=== PATIENT | female | born 1945 ===

== ENCOUNTER 2018-06-06 12:33 | Outpatient (REF) | payer MEDICARE, BC, SELFPAY ==
[2018-06-06 20:37] LABS: ALT 29 U/L (12-78); AST 25 U/L (15-37); Albumin 3.8 g/dL (3.4-5.0); Alkaline Phosphatase 75 U/L (46-116); Anion Gap 10.8 mmol/L (3-11); BUN 21 mg/dL (7-18); Bilirubin, Total 0.5 mg/dL (0.2-1.0); CO2 26.2 mmol/L (21.0-32.0); CREATININE 0.71 mg/dL (0.55-1.02); Chloride 103 mmol/L (98-107); Glucose 80 mg/dL (70-100); Potassium 3.8 mmol/L (3.5-5.1); Sodium 140 mmol/L (136-145); Total Protein 6.6 g/dL (6.4-8.2)
[2018-06-09 13:22] LABS: Hepatitis C Ab w Rflx HCV PCR Negative (NEGAT)
== END 2018-06-06 12:53 ==
LOC: NCHCN 12:33
PROVIDERS: PCP Internal Medicine; Visit Provider Nurse Practitioner Family
DX: G47.9 Sleep disorder, unspecified (principal); E78.5 Hyperlipidemia, unspecified; D12.6 Benign neoplasm of colon, unspecified
CPT/HCPCS: 80053; 86803

== ENCOUNTER 2019-01-19 00:56 | Outpatient (CLI) | payer MEDICARE, BC, SELFPAY ==
--- NOTE | 2019-01-19 09:22 | DI.MAMMO_ITS ---
SYMPTOM/DIAGNOSIS: SCREENING, Z12.31 MAMMOGRAMS: Mammograms were interpreted according to the usual protocol including computer analysis with CAD system, tomosynthesis and C view imaging. The breasts are of moderate density with fairly symmetrical distribution of fibroglandular tissue. No dominant mass or clumped microcalcification is identified in either breast. The current examination is compared with previous examinations including 08/2015 and there is question of increased prominence of a small focal area of asymmetric density or nodularity projected in the central portion of the right breast on MLO view. Additional mammographic views of this area are requested to include an MLO spot compression view of the right breast. CONCLUSION: Additional mammographic views of the right breast requested as described above. Breast ultrasound may be indicated as well depending on the results of the additional mammographic views. Category 0. Breast density, category B. MQSA ASSESSMENT OF FINDINGS: Incomplete: Needs additional imaging evaluation. Category 0. Patient will receive a letter notifying them of these results. BI-RADS category B. There are scattered areas of fibroglandular density.
== END 2019-01-19 01:16 ==
PROVIDERS: PCP Internal Medicine; Visit Provider Nurse Practitioner Family
DX: Z12.31 Encounter for screening mammogram for malignant neoplasm of breast (principal); R92.8 Other abnormal and inconclusive findings on diagnostic imaging of breast
CPT/HCPCS: 77063; 77067

== ENCOUNTER 2019-01-23 01:59 | Outpatient (CLI) | payer MEDICARE, BC, SELFPAY ==
--- NOTE | 2019-01-23 14:33 | DI.COMBO_ITS ---
SYMPTOMS/DIAGNOSIS: RIGHT BREAST INCREASED PROMINENCE OF A SMALL FOCAL AREA OF ASYMMETRIC DENSITY OR NODULARITY ADDITIONAL MAMMOGRAPHIC VIEWS, RIGHT BREAST, AND RIGHT BREAST ULTRASOUND: Additional images are interpreted according to the usual protocol including tomosynthesis and 2D imaging. Additional mammographic views of the right breast and right breast ultrasound are interpreted in conjunction. These examinations were obtained to evaluate a questionable area of nodularity or asymmetric density in the central portion of the right breast on recent mammogram. Additional mammographic views fail to show a discrete mass. Breast ultrasound shows no evidence of mass or cyst. CONCLUSION: No specific evidence of malignancy at this time. Follow-up unilateral right breast mammogram requested in six months. Category 3, breast density category C. MQSA ASSESSMENT OF FINDINGS: Probably benign. Six month follow-up recommended. Category 3. Patient will receive a letter notifying them of these results. Bi-RADS category C. The breasts are heterogeneously dense, which may obscure small masses.
== END 2019-01-23 02:19 ==
PROVIDERS: PCP Internal Medicine; Visit Provider Nurse Practitioner Family
DX: Z12.31 Encounter for screening mammogram for malignant neoplasm of breast (principal); R92.8 Other abnormal and inconclusive findings on diagnostic imaging of breast; N63.10 Unspecified lump in the right breast, unspecified quadrant; N64.59 Other signs and symptoms in breast
CPT/HCPCS: 76642; 77063; 77067

== ENCOUNTER 2019-06-09 11:41 | Outpatient (REF) | payer MEDICARE, BC, SELFPAY ==
[2019-06-09 21:45] LABS: ALT 28 U/L (14-59); AST 19 U/L (15-37); Albumin 3.9 g/dL (3.4-5.0); Alkaline Phosphatase 73 U/L (46-116); Anion Gap 12.8 mmol/L (3-11); BUN 18 mg/dL (7-18); Bilirubin, Total 0.5 mg/dL (0.2-1.0); CO2 22.2 mmol/L (21.0-32.0); CREATININE 0.67 mg/dL (0.55-1.02); Calcium 9.2 mg/dL (8.5-10.1); Chloride 106 mmol/L (98-107); Glucose 95 mg/dL (70-100); Potassium 4.5 mmol/L (3.5-5.1); Sodium 141 mmol/L (136-145); Total Protein 6.8 g/dL (6.4-8.2)
== END 2019-06-09 12:01 ==
LOC: NCHCN 11:41
PROVIDERS: PCP Internal Medicine; Visit Provider Nurse Practitioner Family
DX: E78.5 Hyperlipidemia, unspecified (principal); D12.6 Benign neoplasm of colon, unspecified; M25.561 Pain in right knee; G47.9 Sleep disorder, unspecified
CPT/HCPCS: 80053

== ENCOUNTER 2019-07-20 01:25 | Outpatient (CLI) | payer MEDICARE, BC, SELFPAY ==
--- NOTE | 2019-07-20 01:55 | DI.MAMMO_ITS ---
EXAM: MG MAMMO DIAGNOSTIC UNI CLINICAL HISTORY: DIAGNOSTIC, F/U ABNL MAMMO, R92.8, 6 MO F/U TECHNIQUE: Bilateral full field digital CC and MLO mammographic images were obtained with 3D tomosyn thesis and utilizing computer aided detection (CAD). COMPARISON: [id number] FINDINGS: This is a six-month follow-up from February,. The right breast is composed of heterogeneously den se fibroglandular tissue, breast density category C. No suspicious mass or suspicious microcalcifica tion is seen. The previously questioned area of asymmetric density is no longer seen. IMPRESSION: Category 1, negative mammogram. Bilateral screening should be resumed in 6 months. BI-RADS Cat 1 - Negative Breast Density - Category C - Heterogeneously dense
== END 2019-07-20 01:45 ==
PROVIDERS: PCP Internal Medicine; Visit Provider Nurse Practitioner Family
DX: Z12.31 Encounter for screening mammogram for malignant neoplasm of breast (principal); R92.8 Other abnormal and inconclusive findings on diagnostic imaging of breast; N64.59 Other signs and symptoms in breast
CPT/HCPCS: 77061; 77065; G0279

== ENCOUNTER 2019-09-24 16:21 | Outpatient (REF) | payer MEDICARE, BC, SELFPAY | END 2019-09-24 16:41 | LOC: NCHCN 16:21 | PROVIDERS: PCP Internal Medicine; Visit Provider Nurse Practitioner Family | DX: R30.0 Dysuria (principal) | CPT/HCPCS: 87077; 87086; 87186 ==

== ENCOUNTER 2019-11-23 14:14 | Outpatient (REF) | payer MEDICARE, BC, SELFPAY | END 2019-11-23 14:34 | LOC: NCHCN 14:14 | PROVIDERS: PCP Internal Medicine; Visit Provider Nurse Practitioner Family | DX: R30.0 Dysuria (principal) | CPT/HCPCS: 87077; 87086; 87186 ==

== ENCOUNTER 2020-07-06 00:59 | Outpatient (CLI) | payer MEDICARE, BC, SELFPAY ==
--- NOTE | 2020-07-06 12:26 | DI.MAMMO_ITS ---
EXAM: MAMMO SCREENING CLINICAL HISTORY: SCREENING, Z12.31 TECHNIQUE: Mammograms were interpreted according to the usual protocol including computer analysis w [employer] CAD system, tomosynthesis and C-view imaging. COMPARISON: 2010 through 2018 FINDINGS: The breasts are composed of heterogeneously dense fibroglandular densities, Breast Density category C . No suspicious masses or suspicious microcalcifications are seen. No skin thickening or abnormal axillary lymph nodes are seen. There has been no significant change from prior exams. There is motion on both CC views. Patient сергей ulbaylee return for repeat CC views at no additional charge. IMPRESSION: BI-RADS Cat 0 - Assessment Incomplete: Need additional imaging evaluation Breast Density Category C, heterogeneously Dense. The mammogram demonstrates the patient's breast tissue is dense. Dense breast tissue is very common a nd is not abnormal but dense breast tissue can make it harder to find cancer on a mammogram. Also, de nse breast tissue may increase breast cancer risk. This information about the result of the mammogram report was provided to the patient to raise their awareness. Use this report when you speak with the patient about their risks for breast cancer, which includes their family history. At that time, you may recommend additional screening tests (Ultrasound or MRI) as they might be useful based on their r isk. A negative radiographic report should not delay biopsy if a dominant or clinically suspicious mass is present. Up to ten percent of cancers are not identified on mammography. A negative report may reinforce clinical impression. Adenosis and dense breasts may obscure an underlying neoplasm. False positive reports average 6 to 10%.
== END 2020-07-06 01:19 ==
PROVIDERS: PCP Internal Medicine; Visit Provider Nurse Practitioner Family
DX: Z12.31 Encounter for screening mammogram for malignant neoplasm of breast (principal)
CPT/HCPCS: 77063; 77067

== ENCOUNTER 2020-07-15 03:23 | Outpatient (CLI) | payer MEDICARE, BC, SELFPAY ==
--- NOTE | 2020-07-15 | DI.MAMMO_ITS ---
EXAM: MG MAMMO SCREEN CALL BACK BI CLINICAL HISTORY: F/U MAMMO, REPEAT VIEWS FOR MOTION ON CC VIEWS TECHNIQUE: Mammograms were interpreted according to the usual protocol including computer analysis w [facility] CAD system, tomosynthesis and C-view imaging. COMPARISON: FINDINGS: Additional CC views were obtained bilaterally due to motion on the initial views. No mass or clumped microcalcification identified in either breast. A heterogeneously dense breast tissue noted. No ch gilmer in appearance comparison with previous examinations including July 2019. IMPRESSION: No specific evidence of malignancy at this time. Routine screening examinations are suggested at yea rly intervals in this age group according to the ACS ACR guidelines. BI-RADS Category 1 - Negative Breast Density - Category C - Heterogeneously dense
== END 2020-07-15 03:43 ==
PROVIDERS: PCP Internal Medicine; Visit Provider Nurse Practitioner Family
DX: Z12.31 Encounter for screening mammogram for malignant neoplasm of breast (principal)
CPT/HCPCS: 77063; 77067

== ENCOUNTER 2020-12-13 09:56 | Outpatient (REF) | payer MEDICARE, BC, SELFPAY ==
[2020-12-13 13:27] LABS: Abs Immature Grans 0.04 10^3/uL (0.0-0.06); Absolute Basophil Count 0.08 10^3/uL (0.0-0.2); Absolute Eosinophil Count 0.25 10^3/uL (0.0-0.7); Absolute Lymphocyte Count 2.08 10^3/uL (1.2-3.4); Absolute Neutrophil Count 2.76 10^3/uL (1.2-6.7); Basophils % 1.4; Eosinophils % 4.5; HGB 13.4 g/dL (11.2-15.7); Immature Grans % 0.7; Lymphocytes % 37.1; MCH 30.6 pg (27.0-33.0); MCHC 33.5 % (32.0-36.0); MCV 91.3 fL (80-95); MPV 10.5 fL (8.0-11.0); Monocytes % 7.1; Neutrophils % 49.2; Nucleated RBC 0 %; Platelet Count 305 10^3/uL (130-400); RBC 4.38 10^6/uL (3.93-5.22); RDW 12.1 % (11.7-14.6); RDW-SD 40.7 fL; WBC 5.61 10^3/uL (4.4-10.8)
[2020-12-13 13:47] LABS: ALT 41 U/L (14-59); AST 25 U/L (15-37); Albumin 3.7 g/dL (3.4-5.0); Alkaline Phosphatase 94 U/L (46-116); Anion Gap 7.5 mmol/L (3-11); BUN 19 mg/dL (7-18); Bilirubin, Total 0.5 mg/dL (0.2-1.0); CO2 28.5 mmol/L (21.0-32.0); CREATININE 0.7 mg/dL (0.55-1.02); Calcium 9.1 mg/dL (8.5-10.1); Calculated LDL 148 mg/dL (<100); Chloride 105 mmol/L (98-107); Cholesterol 241 mg/dL (<200); Glucose 85 mg/dL (74-106); HDL Cholesterol 78 mg/dL (40-60); Potassium 4.4 mmol/L (3.5-5.1); Sodium 141 mmol/L (136-145); Triglyceride 78 mg/dL (<150)
== END 2020-12-13 09:57 | disposition home or self-care (01) ==
LOC: NCHCN 09:56
PROVIDERS: PCP Internal Medicine; Visit Provider Nurse Practitioner Family
DX: E78.5 Hyperlipidemia, unspecified (principal); D12.6 Benign neoplasm of colon, unspecified
CPT/HCPCS: 80053; 80061; 85025

== ENCOUNTER 2021-06-13 15:03 | Outpatient (REF) | payer MEDICARE, BC, SELFPAY ==
[2021-06-13 21:09] LABS: Calculated LDL 145 mg/dL (<100); Cholesterol 264 mg/dL (<200); HDL Cholesterol 99 mg/dL (40-60); Triglyceride 103 mg/dL (<150)
== END 2021-06-13 15:04 | disposition home or self-care (01) ==
LOC: NCHCN 15:03
PROVIDERS: PCP Internal Medicine; Visit Provider Nurse Practitioner Family
DX: D12.6 Benign neoplasm of colon, unspecified (principal); N39.0 Urinary tract infection, site not specified
CPT/HCPCS: 80061

== ENCOUNTER → 2022-06-29 00:15 | Outpatient (CLI) | payer MEDICARE, SELFPAY ==
--- NOTE | 2022-06-29 08:39 | DI.MAMMO_ITS ---
Exam(s) MAMMO SCREENING EXAM: MAMMO SCREENING CLINICAL HISTORY: SCREENING, Z12.31 TECHNIQUE: Bilateral full field digital CC and MLO mammographic images were obtained with 3D tomosyn thesis and utilizing computer aided detection (CAD). COMPARISON: Available for comparison. FINDINGS: Masses/Architectural Distortion: There is an area of increased density in the central left breast on the MLO view. This may represent overlying fibroglandular tissue but a spot compression views reques stanley for further evaluation. Microcalcifications: No suspicious pleomorphic-type are seen. Skin Thickening/Nipple Retraction: None. IMPRESSION: 1. Area of increased density in the central left breast on the MLO view. 2. Spot compression views recommended. Ultrasound may be indicated at that time. BI-RADS Category 0 - Assessment Incomplete: Need additional imaging evaluation Breast Density - Category B - Scattered areas of fibroglandular density Breast density category C or D implies that the patient has dense breast tissue. Dense breast tissue is very common and is not abnormal but dense breast tissue can make it harder to find cancer on a ma mmogram. Also, dense breast tissue may increase their breast cancer risk. This information about the result of the mammogram report was provided to the patient to raise their awareness. Use this report when you speak with the patient about their risks for breast cancer, which includes their family hist ory. At that time, you may recommend for more screening tests (Ultrasound or MRI) as they might be us eful based on their risk. A negative radiographic report should not delay biopsy if a dominant or clinically suspicious mass is present. Up to ten percent of cancers are not identified on mammography. A negative report may reinforce clinical impression. Adenosis and dense breasts may obscure an underlying neoplasm. False positive reports average 6 to 10%. Patient will receive a letter notifying them of these results.
== END ==
PROVIDERS: PCP Internal Medicine; Visit Provider Nurse Practitioner Family
DX: Z12.31 Encounter for screening mammogram for malignant neoplasm of breast (principal); R92.8 Other abnormal and inconclusive findings on diagnostic imaging of breast
CPT/HCPCS: 77063; 77067

== ENCOUNTER → 2022-07-06 01:04 | Outpatient (CLI) | payer MEDICARE, SELFPAY ==
--- NOTE | 2022-07-06 | DI.US_ITS ---
Exam(s) MG MAMMO SCREEN CALL BACK UNI US BREAST LT COMPLETE EXAM: MG MAMMO SCREEN CALL BACK UNI -LEFT AND COMPLETE LEFT BREAST ULTRASOUND CLINICAL HISTORY: F/U ABNL MAMMO, INCREASED DENSITY IN CENTRAL LT BREAST. TECHNIQUE: Unilateral spot mammographic images obtained with 3D tomosynthesisand utilizing computer aided detection (CAD). . Complete LEFT breast Ultrasound was also performed, including all 4 quadrants, the retroareolar regio n, and the ipsilateral axilla. COMPARISON: Prior mammograms were reviewed. This additional imaging was performed due to findings described on the recent screening mammogram of 06/29/2022. FINDINGS: DIAGNOSTIC LEFT BREAST MAMMOGRAM: Additional mammographic views performed todayrender this area less concerning and similar in appearan ce to prior mammograms.. COMPLETE LEFT BREAST ULTRASOUND: Ultrasound performed today reveals no evidence of solid or significant cystic lesions in all 4 quadra nts.. Scanning of the left axilla is negative for adenopathy. IMPRESSION: No radiographic evidence of malignancy in the left breast.. Negative complete left breast ultrasound Appropriate follow-up is to keep this patient on a yearly mammogram schedule, with earlier imaging i f a self detected breast change is noted.. The patient was informed of these findings and recommendations prior to leaving the department today. BI-RADS Category 2 - Benign Findings Breast Density - Category B - Scattered areas of fibroglandular density Breast density Category C or D implies that the patient has dense breast tissue. Dense breast tissue can make it harder to find cancer on a mammogram. Dense breast tissue is also associated with an incr eased risk of breast cancer. This information about the result of the mammogram report was provided to the patient to raise their awareness. Use this report when you speak with the patient about their risks for breast cancer, which includes their family history. At that time, you may recommend additional screening tests (Ultrasoun d or MRI) as these tests may add significant information. A negative radiographic report should not delay biopsy if a dominant or clinically suspicious mass is present. Up to ten percent of cancers are not identified on mammography. A negative report may reinforce clinical impression. Adenosis and dense breasts may obscure an underlying neoplasm. False positive reports average 6 to 10%. Patient will receive a letter notifying them of these results.
== END ==
PROVIDERS: PCP Internal Medicine; Visit Provider Nurse Practitioner Family
DX: R92.8 Other abnormal and inconclusive findings on diagnostic imaging of breast (principal); Z12.31 Encounter for screening mammogram for malignant neoplasm of breast
CPT/HCPCS: 76642; 77063; 77067

== ENCOUNTER 2023-03-01 00:46 | Outpatient (CLI) | payer MEDICARE, SELFPAY ==
--- NOTE | 2023-03-01 | DI.RAD_ITS ---
Exam(s) XR SHOULDER RT COMPLETE 2+V EXAM: XR SHOULDER RT COMPLETE 2+V CLINICAL HISTORY: RT SHOULDER PAIN, M25.511. TECHNIQUE: 2D digital imaging was performed. COMPARISON: No exams were available for comparison FINDINGS: Six views No evidence of fracture nor dislocation or abnormal soft tissue calcifications. Subacromial space ap pears unremarkable. No obvious degenerative changes in the glenohumeral and AC joints. Bone density normal. No osseous lesions. IMPRESSION: No significant radiograph findings in the right shoulder. DATA REPOSITORY: RADIATION DOSE DELIVERED:
== END 2023-03-01 01:06 ==
LOC: DI 00:47
PROVIDERS: PCP Internal Medicine; Visit Provider Nurse Practitioner Family
DX: M25.511 Pain in right shoulder (principal)
CPT/HCPCS: 73030

== ENCOUNTER 2024-02-25 05:03 | Outpatient (CLI) | payer MEDICARE, SELFPAY ==
[2024-02-25 09:12] LABS: ALT 26 U/L (14-59); AST 24 U/L (15-37); Albumin 3.4 g/dL (3.4-5.0); Alkaline Phosphatase 97 U/L (46-116); Anion Gap 8.8 mmol/L (3-11); BUN 16 mg/dL (7-18); Bilirubin, Total 0.4 mg/dL (0.2-1.0); CO2 28.2 mmol/L (21.0-32.0); CREATININE 0.8 mg/dL (0.55-1.02); Calculated LDL 130 mg/dL (<100); Chloride 104 mmol/L (98-107); Cholesterol 207 mg/dL (<200); Estimated GFR 76.31 (mL/min/1.73m2); Glucose 95 mg/dL (74-106); HDL Cholesterol 55 mg/dL (40-60); Potassium 4.3 mmol/L (3.5-5.1); Sodium 141 mmol/L (136-145); Total Protein 7.7 g/dL (6.4-8.2); Triglyceride 110 mg/dL (<150)
== END 2024-02-25 05:04 | disposition home or self-care (01) ==
LOC: LBO 05:03
PROVIDERS: PCP Internal Medicine; Visit Provider Nurse Practitioner Family
DX: E78.5 Hyperlipidemia, unspecified (principal)
CPT/HCPCS: 36415; 80053; 80061

== ENCOUNTER 2024-05-01 00:44 | Outpatient (CLI) | payer MEDICARE, SELFPAY ==
--- OUTSIDE RECORDS SUMMARY | 2024-05-01 00:57 | XMS_ITS | Referral Summary ---
Author Organization [facility] Address [address] [place] [address] Care Team Providers Care Riverboat Captain Name Role Phone Deanna Molina MD Primary Care Provider [phone] Allergies No known active allergies Medications Medication Sig Dispensed Refills Start Date End Date Status ibuprofen (MOTRIN) 200 mg tablet Take 400 mg by mouth every 6 hours as needed for Pain. Active Active Problems No known active problems Social History Tobacco Use Types Packs/Day Years Used Date Smoking Tobacco: Former Cigarettes Q uit: 12/24/1976 Sex and Gender Information Value Date Recorded Sex Assigned at Not on file Gender Identity Not on file Sexual Orientation Not on file Functional Status Functional Status Response Date of Assess ment Because of a physical, menta l, or emotional condition, does this person have difficulty doing errands alone such as visiting a doctor's office or shopping? No 03/04/2015 Cognitive Status Response Date of Assessm ent Because of a physical, menta l, or emotional condition, does this person have serious difficulty concentrating, remembering, or making decisions? No 03/04/2015 Plan of Treatment Not on file Care Teams Riverboat Captain Relationship Specialty Start Date End Date Deanna Molina MD [address] [place] [address] PCP - General 01/24/11
--- OUTSIDE RECORDS SUMMARY | 2024-05-01 00:57 | XMS_ITS | Clinical Summary ---
Author Organization [facility] Address [address] [place] [address] Care Team Providers Care Surgical Processor Name Role Phone Deanna Molina MD Primary Care Provider [phone] Allergies No known active allergies Medications Medication [...] on file Sexual Orientation Not on file Obstetrics History Plan of Treatment Health Maintenance Due Date Last Done Comments Hepatitis C Screen 1945 RSV Immunization ( o r 60+ Years) (1 - 1-dose 60+ series) 2007 Fall Risk Screening 03/04/2016 03/04/2015 COVID-19 Vaccine ( season) 2023 Care Teams Surgical Processor Relationship Specialty Start Date End Date Deanna Molina MD [address] [place] [address] PCP - General 01/24/11
--- OUTSIDE RECORDS SUMMARY | 2024-05-01 00:57 | XMS_ITS | Encounter Summary ---
Author Organization Health system Address [address] [place] [id number] Care Team Providers Care Insurance Coder Name Role Phone Deanna Molina MD Primary Care Provider [phone] Reason for Visit * Reason Comments Follow-up Suture removal Encounter Details Date Type Department Care Team (Late st Contact Info) Description 03/04/2015 10:20 EDT Office Visit [facility] Dermatology 3rd [address] [address] Unknown, Provider, Team, Derm Nursing Venous coronado (Primary Dx) Social History Tobacco Use Types Packs/Day Years Used Date Smoking Tobacco: Former Cigarettes Q uit: 12/24/1976 Sex and Gender Information Value Date Recorded Sex Assigned at Not on file Gender Identity Not on file Sexual Orientation Not on file documented as of this encounter Functional Status Functional Status Response Date of [...] concentrating, remembering, or making decisions? No 03/04/2015 documented as of this encounter Discharge Diagnoses Diagnosis 228.01 HEMANGIOMA SKIN[ICD-9-CM] V58.32 ENCOUNTER FOR REMOVAL OF SUTURES[ICD-9-CM] documented in this encounter Progress Notes * Merly Gomez MD - 03/04/2015 2472 EDT I was the supervising physician and was present in the clinic during this visit. Note reviewed, patient was not seen by me. Merly Gomez MD * Roger Scottie Elias IV - 03/04/2015 0950 EDT SUTURE REMOVAL NOTE CC: SUTURE REMOVAL Ms. Ballesteros is status post excision of venous coronado on the right lower lip SUBJECTIVE: Patient reports no concern OBJECTIVE: There were no vitals taken for this visit. 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
--- OUTSIDE RECORDS SUMMARY | 2024-05-01 00:57 | XMS_ITS | Encounter Summary ---
Author Organization [facility] Address [address] [place] [address] Care Team Providers Care Analytics Consultant Name Role Phone Deanna Molina MD Primary Care Provider Reason for Visit * Reason Comments Cosmetic Consult vascular lesion on l ip Encounter Details Date Type Department Care Team (Late st Contact Info) Description 12/24/2013 8:30 EDT Office Visit [facility] Dermatology 3rd Floor [place] [id number] Balwinder Clarke MD [address] [place] [address] Venous coronado of lip (Primary Dx) Social History Tobacco Use Types Packs/Day Years Used Date Smoking Tobacco: Former Cigarettes Q uit: 12/24/1976 Sex and Gender Information Value Date Recorded Sex Assigned at Not on file Gender Identity Not on file Sexual Orientation Not on file documented as of this encounter Discharge Diagnoses Diagnosis 228.01 HEMANGIOMA SKIN[ICD-9-CM] documented in this encounter Patient Instructions * Patient Instructions* Merly Holt MD - 12/24/2013 9:16 EDT [facility] [address] [place] [address] Vascular Lesion Laser Treatment How Does The Vascular Lesion Laser Work? The Pulsed Dye Laser (PDL) is a highly specialized approach to the treatment of vascular growths such as port wine stains and telangiectasias (spider veins). This information sheet has been designed to provide answers to frequently asked questions about the therapy. The Vascular Lesion Laser produces a burst of light that selectively destroys the blood vessel thatmake up the vascular lesion(s) without substantially damaging the surrounding tissue. After laser treatment the surrounding tissue is left intact and normal pigmentation occurs. Port Wine Stains and Spider Veins A port wine stain (PWS) is a benign tumor of tiny blood vessels that looks like a flat light pink or purple stain. A PWS is a birthmark. Previously, they became dark and elevated over time and could be quite disfiguring. Now they are readily treated. Telangiectasias or spider veins are slightly enlarged red blood vessels, which can occur almost anywhere on the skin. They are common in sun exposed areas and may accompany the skin condition of rosacea. Are There Other Ways To Treat My Vascular Lesion? Vascular lesions may be removed by surgery or electrocautery. However, these procedures often result in scarring. The Argon Laser was previously used to treat vascular lesions. However this laser was not specific for the destruction of the blood vessels in the vascular lesions and resulted in scarring in a number of individuals. If you have been treated by other modalities which have resulted in scarring or loss of pigment, the lesion may not respond as well with the Vascular Lesion Laser. The scarring or loss of pigment maybecome more evident after treatment with the Vascular Lesion Laser. Are There Other Reasons Why I Should Not Have This Therapy? The Vascular Lesion Laser is not often recommended for patients that are darkly pigmented or those with black skin because the increased pigment will make the laser less effective. Other reasons for not receiving laser therapy would be: 1. If you have a sensitivity to light in the yellow (565-590 nm) wavelength region. 2. If you are taking anticoagulants (blood thinners). 3. If you have had seizures that are triggered by light. 4. If you are taking any medication for which sunlight is a contraindication. What Results Can I Expect From This Laser Treatment? Treatment with the Vascular Lesion Laser may consist of multiple treatments. These Treatments occur on an average of once every several months, depending on the size and type of lesion, may take a period of 1 - 2 years. The type of lesion you will have will determine the number of treatments you will need. For example: If you are having spider veins treated you may only require 1 or 2 treatments over thesame area. In comparison, a Port Wine Stain may require anywhere from 5 - 12 treatments over the same area. Depending on the type of vascular lesion you have, the age and color of the lesion will determine the amount of clearance that will occur. Total clearance of a lesion may not be possible because of these factors. How Long Will The Laser Treatment Last? The duration of your laser treatment depends on many factors. The size of your lesion will determine if the entire lesion can be treated in one session, or if it has to be divided into sections for treatment. The physician may schedule specific time allotments for laser therapy (i.e. 5 - 30 minute sessions). Finally, how you tolerate the laser treatment will also determine the length of treatmenttime. What Can I Expect Immediately After Treatment? Because the laser affects the blood vessel instantly, a black and blue or baugh- purple yeni developsimmediately in the area where the light has come in contact with the skin. This color resolves over5 - 14 days. The majority of patients are able to wear make up 3 days following the procedure, but extreme care must be taken when the makeup is removed. The overlying skin is very fragile in the heal ing period, and rubbing or irritation can increase the chance of scarring. Are There Any Adverse Effects? With any laser therapy there is a possibility for adverse effects. The following may occur with theVascular Lesion Laser: 1. The treatment area may hyperpigment, or appear darker. Normal skin color usually returns within 6 months in the facial area. If hyperpigmentation occurs on the extremities, the return to normal skin may take longer. 2. The treated area may show a slight depression after laser treatment. This depression usually resolves in a few months. 3. Scarring is a risk with the use of any laser. The Pari Vascular Lesion Laser has a less than 1% reported incidence of scarring. If the post treatment skin care instructions are not followed, the chance of scarring can be increased. Will The Laser Treatment Hurt? The laser will produce some discomfort. The feeling of a laser pulse has been described as being snapped by a rubber band. Following the laser treatment the area may feel like an intense sunburn for the first day or two. Most patients have tolerated the laser procedure without any need for anesthesia; however, in children with Port Wine Stains, anesthesia may be of benefit. If you require some anesthesia, the doctor will discuss types of anesthesia that can be used. Insurance Coverage Fees Fees for the procedure depend upon the size of the lesion treated and the time required. Insurance coverage depends upon your specific medical insurance policy. In general it is up to the patient to contact his or her insurance company to determine if a procedure will be covered. Most patients around the country get a certain degree of reimbursement from their policies for port-wine stain therapy. Facial telangiectasias and spider veins of the legs are considered cosmetic procedures and are usually not covered by insurance. You will be asked to pay at the time of the laser procedure. Personal checks and credit cards are accepted. Documentation Of Your Laser Treatment The size, location, and color of your lesion will be recorded in your chart. The physician may take photographs before and after laser treatments. These photographs can help you to see the progress that is being made to clear your vascular lesion. If these photographs are to be used for educational purposes, you will be asked to sign a form to allow the physician to utilizeyour photographs for that purpose. Safety Required during Laser Treatments The laser produces a very bright light. Everyone in the treatment room must wear protective eyewearduring the laser treatment. When the lesion is on an extremity or area other than the face, you may wear the protective gogglesor glasses that will permit you to watch the procedure, if you wish. When your lesion is on the face, you may have a gauze sponge placed over your eyes and secured with tape or you may wear the patient protective goggles that look like the ???sunnies?? used in tanning booths. The patient protective goggles do not fit well on infants or small children. Their eyes will be protected by gauze or a face cloth for instance. If the eyelid is treated, protective eye sanchez will be used under the eyelid. These eye sanchez look like a large contact lens and are usually made of metal or plastic. The doctor will place drops in your eye to make insertion of the eye shield less uncomfortable. When the laser is used to treat areas containing hair, the hair may be moistened with water, or damp sponges may be placed around the area to prevent the hair from being singed. Hair singed during laser therapy will regrow. Fires Caused By Laser Treatments There are rare reports of perfume and certain creams igniting and causing a flash fire upon laser use. No perfume, hair spray, or makeup should be worn to the laser appointment. documented in this encounter Progress Notes * Kristi Palafox - 12/24/2013 0908 EDT Review of Systems Constitutional: Negative for fever, fatigue and unexpected weight change. HENT: Negative for mouth sores. Eyes: Negative for pain. Respiratory: Negative for cough and shortness of breath. Cardiovascular: Negative for chest pain and palpitations. Gastrointestinal: Negative for nausea, vomiting, abdominal pain, diarrhea, constipation and blood in stool. Genitourinary: Negative for dysuria, frequency and hematuria. Musculoskeletal: Negative for myalgias, joint swelling, arthralgias and muscle stiffness in the morning. Skin: Negative for rash. Neurological: Negative for numbness and headaches. Endo/Heme/Allergies: Does not bruise/bleed easily. Psychiatric/Behavioral: Negative for sleep disturbance. The patient is not nervous/anxious. Merly Holt MD 12/24/2013 9:14 * Balwinder Clarke MD - 12/24/2013 0841 EDT Cosmetic Consultation Chief Complaint Patient presents with ??? Cosmetic Consult vascular lesion on lip S: Ritu Ballesteros is a 68 y.o. year old female presenting for evaluation and management of the following concerns: Enlarging vein on lower lip, present for 15 years. O: Patient is healthy appearing, alert and oriented, in no acute distress, displaying appropriate mood and affect. Cutaneous examination was performed today, including the hair, scalp, face, eyelids,lips, neck, hands, digits, and nails. Significant findings on examination include: On the lower vermilion lip, there is an approximately 1 cm completely blanching, blue nodule. A: Venous coronado, right lower lip. P: The above diagnoses and treatment options were discussed For the venous coronado, treatment options include laser and shave/curretage, however both are likely to leave a hypopigmented scar. Patient will return PRN for treatment as desired Merly Holt MD 12/24/2013 9:15 Attestation Statement: I saw and examined the patient with the resident/fellow. I agree with the findings and plan of care documented in the resident's/fellow's note. Balwinder Clarke MD, [facility] [employer] Division of Dermatology [facility] documented in this encounter Plan of Treatment Not on file documented as of this encounter Visit Diagnoses Diagnosis Venous coronado of lip- Primary Hemangioma of skin and subcutaneous tissue documented in this encounter Historical Medications * This list may reflect changes made after this encounter. Medication Sig Dispensed Refills Start Date End Date ibuprofen (MOTRIN) 200 mg tablet Take 400 mg by mouth every 6 hours as needed for Pain. added in this encounter Care Teams Analytics Consultant Relationship Specialty Start Date End Date Deanna Molina MD [address] [place] [address] PCP - General 01/24/11 documented as of this encounter
--- OUTSIDE RECORDS SUMMARY | 2024-05-01 00:57 | XMS_ITS | Encounter Summary ---
Author Organization [facility] Address [address] [place] [address] Care Team Providers Care Founder And President Name Role Phone Deanna Molina MD Primary Care Provider [phone] Reason for Visit * Reason Onset Date Comments Appointment Related 01/27/2014 Patient call ed and states she wants a laser appointment after February 26. Please call patient. Encounter Details Date Type Department Care Team (Late st Contact Info) Description 01/27/2014 Telephone [facility] Dermatology 3rd Floor [facility] [address] [place], [place] [id number] Balwinder Clarke MD [address] [place] [address] Appointment Related (Patient called and states she wants a laser appointment after February 26. Please call patient.) Social History Tobacco Use Types Packs/Day Years Used Date Smoking Tobacco: Former Cigarettes Q uit: 12/24/1976 Sex and Gender Information Value Date Recorded Sex Assigned at Not on file Gender Identity Not on file Sexual Orientation Not on file documented as of this encounter Miscellaneous Notes * Telephone Encounter - Kelli James - 01/27/2014 1021 EDT Booked patient with Dr. Pressely for laser on 04.09.14 @ 9:30. * Telephone Encounter - Niurka Miller - 01/27/2014 0955 EDT Left message to call office back. Patient can be scheduled for laser treatment with any provider asDr. Clarke does not have any openings prior to leaving. documented in this encounter Plan of Treatment Not on file documented as of this encounter Visit Diagnoses Not on filedocumented in this encounter Care Teams Founder And President Relationship Specialty Start Date End Date Deanna Molina MD [address] [place] [address] PCP - General 01/24/11 documented as of this encounter
--- OUTSIDE RECORDS SUMMARY | 2024-05-01 00:57 | XMS_ITS | Encounter Summary ---
Author Organization [facility] Address [address] [place] [address] Care Team Providers Care Business Coordinator Name Role Phone Deanna Molina MD Primary Care Provider [phone] Reason for Visit * Reason Comments Surgical Excision venous coronado on right lower lip Encounter Details Date Type Department Care Team (Late st Contact Info) Description 02/25/2015 10:00 EDT Office Visit [facility] Dermatology 3rd Floor [facility] [address] [place], [place] [id number] Kayla Pressley MD [address] [facility] [place] [address] Neoplasm of unspecified nature of bone, soft tissue, and skin (Primary Dx); Venous coronado Social History Tobacco Use Types Packs/Day Years Used Date Smoking Tobacco: Former Cigarettes Q uit: 12/24/1976 Sex and Gender Information Value Date Recorded Sex Assigned at Not on file Gender Identity Not on file Sexual Orientation Not on file documented as of this encounter Discharge Diagnoses Diagnosis 239.2 BONE/SKIN NEOPLASM NOS[ICD-9-CM] documented in this encounter Patient Instructions * Patient Instructions* Anna Herrera MD - 02/25/2015 9:53 EDT WOUND CARE INSTRUCTIONS FOR SKIN SURGERY The BANDAGE should remain in place for 24 hours. You may shower after 24 hours; remove the bandage and replace it after the shower (see wound care section). DISCOMFORT: Expect some discomfort. Extra-Strength Tylenol, taken as directed by the gas line installer, will help relieve pain. If Tylenol does not provide relief, you may alternate with ibuprofen. If thepain is severe please call the office. BLEEDING: You may notice some blood on the edges of the dressing the first day - this is NORMAL. Ifthe bleeding soaks through the dressing, remove the dressing, and apply firm, steady pressure with a moist clean wash cloth for fifteen minutes. If the bleeding stops, redress the wound, if not, callour office at . ACTIVITY: Relax and limit your physical activity for the first 48 hours after surgery. Your provider may ask you to limit activity for a longer period of time. If the surgery was on the face or scalp, keep your head elevated. APPEARANCE: There may be swelling and bruising around the wound. Some redness is normal, but the wound should not be red, hot and tender. If the wound becomes increasingly inflamed, warm, or drains pus, please call our office. With surgery on the nose, eyelids, forehead, or scalp your eyes may become swollen and bruised. WOUND CARE: ?? Change the dressing daily and when it becomes wet. ?? Wash hands with soap and water before changing the dressing. ?? Clean the wound with mild soap and warm water. ?? You may gently loosen any crusts with a cotton swab. ?? The wound may be slightly tender and may bleed a small amount. A small amount of discharge is normal. ?? Apply a thin layer of sterile petroleum jelly over the wound. ?? Cover with Telfa or similar non-stick dressing or bandage. ?? Tape in place with Hypafix or paper tape. ?? It is important to keep the wound covered for 7 days at which point the dressing may be removed and does not need to be reapplied. However, if there are areas that are not fully healed, the dressing should remain in place until the skin has healed completely. ?? If your sutures require removal, you will receive specific instructions regarding when and whereto have them removed; Continue daily dressings until the sutures are removed. Dissolvable sutures generally fall out in 7 to 14 days. If there are suture remnants still present after 7 days you may pull them out with tweezers. Please CALL OUR OFFICE IF YOU EXPERIENCE: or ?? Increasing redness ?? Wound is warm or hot to touch ?? Increasing pain ?? Drainage with a foul odor ?? Rapid swelling of the wound ?? Fever or chills documented in this encounter Progress Notes * TanikasophieMichaela - 02/25/2015 1001 EDT Patient Education Topic: Wound Care Method: Handout and Verbal Taught to: Patient Barriers: None Outcomes: independent Signature: Michaela Caceres Marie 02/25/2015 * Anna Herrera MD - 02/25/2015 0951 EDT Images from the original note were not included. LINEAR EXCISION PROCEDURE NOTE PATIENT INFORMATION: Ritu Ballesteros [id number] 1945 DATE OF PROCEDURE: 02/25/2015 SURGEON: Kayla Pressley MD ALL SOURCE INTELLIGENCE TECHNICIAN: Anna Herrera MD PREOPERATIVE DIAGNOSIS: venous coronado LOCATION: right lower lip LESION SIZE: 1.0 x 1.0 cm MARGINS PER SIDE: 0.1 cm TOTAL EXCISION DIAMETER: 1.2 x 1.2 cm INDICATIONS: The indication, risks, benefits and alternatives to this procedure were discussed in detail with the patient and all questions were answered. The patient had no contraindications to surgery with local anesthesia. Informed consent was obtained in writing. PROCEDURE: Patient position: supine Anesthesia: 1% lidocaine with epinephrine 1:100,000 local infiltration Prep: Povodine Iodine The patient was brought to the operative suite. The lesion was identified, prepped and draped in the usual sterile fashion. Following complete anesthesia, the skin was incised in a fusiform fashion to the level of the muscle with a number 15 surgical blade. The wound was undermined in all directions with care to avoid functionally important nerves and vessels. Hemostasis was achieved with spot electrocoagulation. The wound edges were approximated with 5.0 Vicryl (polyglactin 910) buried interrupted sutures at the level of the dermis and subcutis. The epidermis was approximated with 5.0 Prolene (polypropylene) and 4.0 Mersilene (polyethylene terephthalate). The final wound length was 1.5 cent imeters. The wound edges were cleansed with peroxide and a sterile pressure dressing was applied over telfa and petrolatum. Verbal and written wound care instructions were given. The patient tolerated the procedure well and left the operating suite in excellent condition. The surgical specimen was submitted to pathology for histologic evaluation. POSTOPERATIVE DIAGNOSIS: venous coronado FINAL PROCEDURE: Excision and Linear Repair BLOOD LOSS: minimal OPERATIVE TIME: 30 minutes COMPLICATIONS: none NOTE: none Anna Herrera MD 02/25/2015 9:51 Attestation statement: I saw and examined the patient with the resident/fellow. I agree with the findings and plan of care documented in the resident's/fellow's note. Kayla Pressley MD Chief of Dermatology [facility] I personally performed the procedure documented in this encounter Plan of Treatment Scheduled Orders Name Type Priority Associated Diagnoses Orde r Schedule SURGICAL PATHOLOGY- ORDER ONLY Pathology Routine Neoplasm of Unspecified Nature of Bone, Soft Tissue, and Skin Ordered: 02/25/2015 documented as of this encounter Procedures Procedure Name Priority Date/Time Associated Diagnosis Comments SURGICAL PATHOLOGY Routine 02/25/2015 13 :48 EDT documented in this encounter Results * SURGICAL PATHOLOGY (02/25/2015 13:48 EDT) Pathology Report: SURGICAL PATHOLOGY REPORT Reports generated via electronic interface contain original data; however they are lacking the format of the original report. Caution should be taken when reading/interpret ing unformatted reports. Name: ? RITU BALLESTEROS ? Accession #: ? [id number] ? : ? 1945 (Age: 69) ??F ? Collect Date: ? 02/25/2015 ? Location: ? [facility] ? Receive Date: ? 02/25/2015 ? Provider: KAYLA PRESSLEY MD Copy to: ANNA HERRERA MD ? Final Pathologic Diagnosis: MUCOSA OF LIP, RIGHT LOWER, EXCISION: - Venous coronado. ?? Document reviewed and electronically signed by: NIMA MCKENZIE MD Report ??Date: 02/28/2015 12:50 By the signature above, the attending physician certifies that he/she has personally conducted a gross and/or microscopic examination of the described specimens and rendered or confirmed the above diagnosis. Specimen(s) Received: Right lower lip Clinical History: Purple papule on the right lower lip, rule out venous coronado; clinical diagnosis code: ??239.2 Gross Description: ? Received in formalin labelled with proper patient identification (initials D, C) and right lower lip is an unoriented elliptical excision of red-purple wrinkled skin (2.0 x 0.5 cm and is excised to a depth of 0.4 cm). The margins are inked blue. The specimen is serially sectioned and entirely submitted as 1-2 central sections and 3 tips, reverse en face. Jh Vázquez 02/25/2015 3:04 PM End of Report [facility] 02/25/2015 13:4 8 EDT 02/25/2015 13:48 EDT Kayla Pressley MD PATHOLOGY ORDERAB LES [facility] [address] [place] [address] documented in this encounter Visit Diagnoses Diagnosis Neoplasm of unspecified nature of bone, soft tissue, and skin- Primary Venous coronado Hemangioma of skin and subcutaneous tissue documented in this encounter Care Teams Business Coordinator Relationship Specialty Start Date End Date Deanna Molina MD [address] [place] [address] PCP - General 01/24/11 documented as of this encounter
--- OUTSIDE RECORDS SUMMARY | 2024-05-01 00:57 | XMS_ITS | Encounter Summary ---
Author Organization [facility] Address [address] [place] [address] Care Team Providers Care Application Integrator Name Role Phone Deanna Molina MD Primary Care Provider [phone] Reason for Visit * Reason Comments Laser Treatment lower lip Encounter Details Date Type Department Care Team (Late st Contact Info) Description 09/03/2014 11:15 EST Office Visit [facility] Dermatology 3rd Floor [address] [id number] Francis Pressley MD [address] [facility], [address] [place] [address] Venous coronado (Primary Dx) Social History Tobacco Use Types Packs/Day Years Used Date Smoking Tobacco: Former Cigarettes Q uit: 12/24/1976 Sex and Gender Information Value Date Recorded Sex Assigned at Not on file Gender Identity Not on file Sexual Orientation Not on file documented as of this encounter Discharge Diagnoses Diagnosis 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 The patient is not nervous/anxious. All other systems reviewed and are negative. Francis Pressley MD Chief of Dermatology [facility] * Anna Waldrop MD - 09/03/2014 1106 EST S: Ritu Ballesteros is a 68 y.o. 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 Concerned about scarring and what appearance would be after the removal. No other complaints. O: Focal exam of lower lip On the lower vermilion lip, there is an approximately 1 cm completely blanching, blue nodule. A: Venous coronado, right lower lip. Large, ~1cm P: The above diagnoses and treatment options were discussed For the venous coronado, treatment options include laser and excision/curretage. Benefits of excision over laser including more definitive treatment were discussed, although it will require several weeks of healing and risk of hypopigmented scar Patient agrees to proceed with surgical excision at future appointment RTC for excision on or Saturday morning Anna Waldrop MD 09/03/2014 11:06 Attestation statement: I saw and examined the patient with the resident/fellow. I agree with the findings and plan of care documented in the resident's/fellow's note. Francis Pressley MD Chief of Dermatology [facility] documented in this encounter Plan of Treatment Not on file documented as of this encounter Visit Diagnoses Diagnosis Venous coronado- Primary Hemangioma of skin and subcutaneous tissue documented in this encounter Care Teams Application Integrator Relationship Specialty Start Date End Date Deanna Molina MD [address] [place] [address] PCP - General 01/24/11 documented as of this encounter
--- OUTSIDE RECORDS SUMMARY | 2024-05-01 00:58 | XMS_ITS | Encounter Summary ---
Author Organization [facility] Address [address] [place] [address] Care Team Providers Care Customer Experience Associate Name Role Phone Unavailable Primary Care Provider Unavailabl e Encounter Details Date Type Department Care Team (Late st Contact Info) Description 01/22/2011 Results Only [facility] Laboratory Services - [facility] ([facility]) [address] [place], [place] [address] Ravi Nicole MD [address] [place], [place] [phone] Social History Tobacco Use Types Packs/Day Years Used Date Smoking Tobacco: Never Assessed Sex and Gender Information Value Date Recorded Sex Assigned at Not on file Gender Identity Not on file Sexual Orientation Not on file documented as of this encounter Plan of Treatment Not on file documented as of this encounter Procedures Procedure Name Priority Date/Time Associated Diagnosis Comments SURGICAL PATHOLOGY Routine 01/22/2011 0:00 EDT documented in this encounter Results * SURGICAL PATHOLOGY (01/22/2011 0:00 EDT) Pathology Report: SURGICAL PATHOLOGY REPORT ? Reports generated via electronic interface contain original data; ? however they are lacking the format of the original report. ? Caution should be taken when reading/interpreti ng unformatted reports. ? Name: ? LESLI, RITU ? Accession #: ? [id number] ? : ? 1945 (Age: 65) ??F ? Collect Date: ? 01/22/2011 ? Location: ? [facility] ? Receive Date: ? 01/22/2011 ? Provider: RAVI RIVERAO MD ? Copy to: DAVID FINE MD ? Final Pathologic Diagnosis: ? Colon, sigmoid, polyp, biopsy: ? - Proteinaceous and vegetable matter only. ? - ??No colonic mucosa available for evaluation. ? Document reviewed and electronically signed by: ? GENIE NAYLOR MD ? Report ??Date: 01/24/2011 15:44 ? By the signature above, the attending physician certifies that he/she has ? personally conducted a gross and/or microscopic examination of the described ? specimens and rendered or confirmed the above diagnosis. ? Specimen(s) Received: ? Sigmoid polyp ? Clinical History: ? H/O colon adenoma ? Gross Description: ? Received in formalin labelled Lesli, Ritu and sigmoid polyp is a ?? 0.2 x 0.2 x 0.2 cm aggregate of probable vegetable material with no grossly ? discernible definitive tissue present. ??The specimen is entirely submitted in a single cassette. ??(Morris Garibay)/claytonn ? End of Report ? [facility] 01/22/2011 01/22/2011 17: 42 EDT Ravi Nicole MD PATHOLOGY ORDERABLES [facility] [address] [place] [address] documented in this encounter Visit Diagnoses Not on filedocumented in this encounter
--- OUTSIDE RECORDS SUMMARY | 2024-05-01 00:58 | XMS_ITS | Encounter Summary ---
Author Organization [facility] Address [address] [place] [address] Care Team Providers Care Mold Yarn Supervisor Name Role Phone Unavailable Primary Care Provider Unavailabl e Encounter Details Date Type Department Care Team (Late st Contact Info) Description 12/13/2010 Results Only [facility] Laboratory Services - [facility] ([facility]) [address] [place], [place] [address] Acacia Cage FNP [address] [place], [place] [phone] Social History Tobacco Use Types Packs/Day Years Used Date Smoking Tobacco: Never Assessed Sex and Gender Information Value Date Recorded Sex Assigned at Not on file Gender Identity Not on file Sexual Orientation Not on file documented as of this encounter Plan of Treatment Not on file documented as of this encounter Procedures Procedure Name Priority Date/Time Associated Diagnosis Comments CYTOPATHOLOGY Routine 12/13/2010 0:00 EDT documented in this encounter Results * CYTOPATHOLOGY (12/13/2010 0:00 EDT) Pathology Report: CYTOPATHOLOGY REPORT ? Reports generated via electronic interface contain original data; ? however they are lacking the format of the original report. ? Caution should be taken when reading/interpreti ng unformatted reports. ? Name: ? TALON RITU ? Accession #: ? [id number] ? : ? 1945 (Age: 65) ??F ?Collect Date: ? 12/13/2010 ? Location: ? [facility] ? Receive Date: ? 12/15/2010 ? Provider: ?ACACIA HORN ? Copy to: ? Specimen/Source: ?Pap Test, Cervix/Endocervix, ThinPrep Imaging System ? with manual evaluation ? Last Menstrual Period: ? HALLE ? SPECIMEN ADEQUACY ? Satisfactory for Evaluation ? - assessment of transformation zone component not applicable ( e.g. atrophy, ? vaginal sample, hysterectomy) ? - scant squamous epithelial component ? GENERAL CATEGORIZATION ? Negative for Intraepithelial Lesion or Malignancy ? Document reviewed and electronically signed by: ? Maggie Kathy, CT(ASCP) ? Report Date: ??12/20/2010 09:16 ? End of Report ? [facility] 12/13/2010 12/15/2010 Acacia HORN PATHOLOGY ORDERABLES [facility] [address] [place] [address] documented in this encounter Visit Diagnoses Not on filedocumented in this encounter
--- OUTSIDE RECORDS SUMMARY | 2024-05-01 00:58 | XMS_ITS | Encounter Summary ---
Author Organization [facility] Address [address] [place] [address] Care Team Providers Care Hogshead Press Operator Name Role Phone Unavailable Primary Care Provider Unavailabl e Encounter Details Date Type Department Care Team (Late st Contact Info) Description 09/29/2001 Results Only [facility] - [facility] [address] [place] [address] Drake Rojas MD [address] [facility] [address] [address] Social History Tobacco Use Types Packs/Day Years Used Date Smoking Tobacco: Never Assessed Sex and Gender Information Value Date Recorded Sex Assigned at Not on file Gender Identity Not on file Sexual Orientation Not on file documented as of this encounter Plan of Treatment Not on file documented as of this encounter Procedures Procedure Name Priority Date/Time Associated Diagnosis Comments CYTOPATHOLOGY Routine 09/29/2001 0:00 EST documented in this encounter Results * CYTOPATHOLOGY (09/29/2001 0:00 EST) Pathology Report: CYTOPATHOLOGY REPORT Reports generated via electronic interface contain original data; however they are lacking the format of the original report. Caution should be taken when reading/interpreti ng unformatted reports. Name: ? RITU BALLESTEROS ? Accession #: ? [id number] : ? 1945 (Age: 55) ??F ?Collect Date: ? 09/29/2001 Location: ? [facility] ? Receive Date: ? 10/02/2001 Provider: ?DRAKE ROJAS MD Copy to: ? Specimen/Source: ?Conventional Pap Test, Cervix/Endocervix Last Menstrual Period: ? none Hormonal/Contracep tive Status: ? Prempro ? SPECIMEN ADEQUACY ? Satisfactory for Evaluation - transformation zone component present GENERAL CATEGORIZATION ? Negative for Intraepithelial Lesion or Malignancy ? Document reviewed and electronically signed by: ? Annalisa Vizcaino, SCT(ASCP) ? Report Date: ??10/02/2001 19:36 End of Report [facility] 09/29/2001 10/02/2001 Drake Rojas MD PATHOLOGY ORDERABLES [facility] [address] [place] [address] documented in this encounter Visit Diagnoses Not on filedocumented in this encounter
--- OUTSIDE RECORDS SUMMARY | 2024-05-01 00:58 | XMS_ITS | Encounter Summary ---
Author Organization [facility] Address [address] [place] [address] Care Team Providers Care Sandblaster Stone Name Role Phone Unavailable Primary Care Provider Unavailabl e Encounter Details Date Type Department Care Team (Late st Contact Info) Description 05/20/[address] [facility] - [place] conversion [address] [place] [address] Acacia Cage FNP [address] [place], [place] [phone] Social History Tobacco Use Types Packs/Day Years Used Date Smoking Tobacco: Never Assessed Sex and Gender Information Value Date Recorded Sex Assigned at Not on file Gender Identity Not on file Sexual Orientation Not on file documented as of this encounter Plan of Treatment Not on file documented as of this encounter Procedures Procedure Name Priority Date/Time Associated Diagnosis Comments CYTOPATHOLOGY Routine 05/20/2007 0:00 EDT documented in this encounter Results * CYTOPATHOLOGY (05/20/2007 0:00 EDT) Pathology Report: CYTOPATHOLOGY REPORT Reports generated via electronic interface contain original data; however they are lacking the format of the original report. Caution should be taken when reading/interpreti ng unformatted reports. Name: ? RTIU BALLESTEROS ? Accession #: ? [id number] : ? 1945 (Age: 61) ??F ?Collect Date: ? 05/20/2007 Location: ? [facility] ? Receive Date: ? 05/22/2007 Provider: ?ACACIA CAGE SENIOR ASIC ENGINEER Copy to: ? Specimen/Source: ?ThinPrep Pap Test, Cervix/Endocervix, processed on Optimitive ThinPrep Imaging System, with manual evaluation Last Menstrual Period: ? HALLE Other: ? HPVA - HPV testing requested if ASC-US on the current ThinPrep Pap test. ? SPECIMEN ADEQUACY ? Satisfactory for Evaluation - assessment of transformation zone component not applicable ( e.g. atrophy, vaginal sample, hysterectomy) GENERAL CATEGORIZATION ? Negative for Intraepithelial Lesion or Malignancy ? Document reviewed and electronically signed by: ? Annalisa Vizcaino, SCT(ASCP) ? Report Date: ??05/27/2007 14:44 End of Report [facility] 05/20/2007 05/22/2007 Acacia BABINP PATHOLOGY ORDERABLES Performing Organization Address City/State/[facility] Co de Phone Number [facility] B[facility]N [address] [place] [address] documented in this encounter Visit Diagnoses Not on filedocumented in this encounter
--- OUTSIDE RECORDS SUMMARY | 2024-05-01 00:58 | XMS_ITS | Encounter Summary ---
Author Organization [facility] Address [address] [place] [address] Care Team Providers Care Commission Associate Name Role Phone Unavailable Primary Care Provider Unavailabl e Encounter Details Date Type Department Care Team (Late st Contact Info) Description 10/02/2002 Results Only [facility] - Maple conversion [address] [place] [address] Drake Rojas MD [address] [facility] [address] [address] Social History Tobacco Use Types [...] Priority Date/Time Associated Diagnosis Comments CYTOPATHOLOGY Routine 10/02/2002 0:00 EST documented in this encounter Results * CYTOPATHOLOGY (10/02/2002 0:00 EST) Pathology Report: CYTOPATHOLOGY REPORT Reports generated via electronic interface contain original data; however they are lacking the format of the original report. Caution should be taken when reading/interpreti ng unformatted reports. Name: ? RITU BALLESTEROS ? Accession #: ? [id number] : ? 1945 (Age: 56) ??F ?Collect Date: ? 10/02/2002 Location: ? [facility] ? Receive Date: ? 10/05/2002 Provider: ?DRAKE ROJAS MD Copy to: ? Specimen/Source: ?Conventional Pap Test, Cervix/Endocervix Last Menstrual Period: ? 2000 Previous Gynecologic Pathology: ? Yes: Atrophic vagina ? SPECIMEN ADEQUACY ? Satisfactory for Evaluation - assessment of transformation zone component not applicable ( e.g. atrophy, vaginal sample, hysterectomy) - obscuring inflammation GENERAL CATEGORIZATION ? Negative for Intraepithelial Lesion or Malignancy INTERPRETATION ? Reactive cellular changes associated with inflammation present (includes repair). ? Document reviewed and electronically signed by: ? ALIX KIM MD ? Report Date: ??10/07/2002 13:36 End of Report [facility] 10/02/2002 10/05/2002 Drake Rojas MD PATHOLOGY ORDERABLES Performing Organization Address City/State/[facility] Co de Phone Number [facility] [address] [place] [address] documented in this encounter Visit Diagnoses Not on filedocumented in this encounter
--- OUTSIDE RECORDS SUMMARY | 2024-05-01 00:58 | XMS_ITS | Encounter Summary ---
Author Organization [facility] Address [address] [place] [address] Care Team Providers Care Oxyhydrogen Welder Name Role Phone Unavailable Primary Care Provider Unavailabl e Encounter Details Date Type Department Care Team (Late st Contact Info) Description 01/19/2009 Orders Only [facility] Laboratory Services - [facility] ([facility]) [address] [place], [place] [phone] Acacia Cage FNP [address] [place], [place] [phone] Social History Tobacco Use Types Packs/Day Years Used Date Smoking Tobacco: Never Assessed Sex and Gender Information Value Date Recorded Sex Assigned at Not on file Gender Identity Not on file Sexual Orientation Not on file documented as of this encounter Plan of Treatment Not on file documented as of this encounter Procedures Procedure Name Priority Date/Time Associated Diagnosis Comments CYTOPATHOLOGY Routine 01/19/2009 0:00 EDT documented in this encounter Results * CYTOPATHOLOGY (01/19/2009 0:00 EDT) Pathology Report: CYTOPATHOLOGY REPORT ? Reports generated via electronic interface contain original data; ? however they are lacking the format of the original report. ? Caution should be taken when reading/interpreti ng unformatted reports. ? Name: ? TALON RITU ? Accession #: ? [id number] ? : ? 1945 (Age: 63) ??F ?Collect Date: ? 01/19/2009 ? Location: ? [facility] ? Receive Date: ? 01/20/2009 ? Provider: ?ACACIA HORN ? Copy to: ? Specimen/Source: ?Pap Test, Cervix/Endocervix, ThinPrep Imaging System ? with manual evaluation ? Last Menstrual Period: ? HALLE ? Other: ? HPVA - HPV testing requested if ASC-US on the current ThinPrep Pap test. ? SPECIMEN ADEQUACY ? Satisfactory for Evaluation ? - assessment of transformation zone component not applicable ( e.g. atrophy, ? vaginal sample, hysterectomy) ? - scant squamous epithelial component ? GENERAL CATEGORIZATION ? Negative for Intraepithelial Lesion or Malignancy ? Document reviewed and electronically signed by: ? Jessica Strickland, CT(ASCP)(IAC) ? Report Date: ??01/25/2009 10:02 ? End of Report ? [facility] B[facility]N 01/19/2009 01/20/2009 Acacia Cage MEDICAL DIAGNOSTIC RADIOGRAPHER PATHOLOGY ORDERABLES [facility] [address] [place] [address] documented in this encounter Visit Diagnoses Not on filedocumented in this encounter
--- OUTSIDE RECORDS SUMMARY | 2024-05-01 00:58 | XMS_ITS | Encounter Summary ---
Author Organization [facility] Address [address] [place] [address] Care Team Providers Care Chief Dispatcher Service Name Role Phone Unavailable Primary Care Provider Unavailabl e Encounter Details Date Type Department Care Team (Late st Contact Info) Description 07/07/2007 Results Only [facility] - [place] conversion [address] [place] [address] Ravi Nicole MD [address] [place] [address] Social History Tobacco Use Types Packs/Day Years Used Date Smoking Tobacco: Never Assessed Sex and Gender Information Value Date Recorded Sex Assigned at Not on file Gender Identity Not on file Sexual Orientation Not on file documented as of this encounter Plan of Treatment Not on file documented as of this encounter Procedures Procedure Name Priority Date/Time Associated Diagnosis Comments SURGICAL PATHOLOGY Routine 07/07/2007 0:00 EDT documented in this encounter Results * SURGICAL PATHOLOGY (07/07/2007 0:00 EDT) Pathology Report: SURGICAL PATHOLOGY REPORT Reports generated via electronic interface contain original data; however they are lacking the format of the original report. Caution should be taken when reading/interpreti ng unformatted reports. Name: ? RITU BALLESTEROS ? Accession #: ? [id number] ? : ? 1945 (Age: 61) ??F ? Collect Date: ? 07/07/2007 ? Location: ? [facility] ? Receive Date: ? 07/08/2007 ? Provider: RAVI NICOLE MD Copy to: DAVID ARCHIBALD MD ? Final Pathologic Diagnosis: A. ?Colon, ascending, polyps, biopsies: 1. ?Tubular adenoma (1). 2. ? Fragments of benign colonic mucosa (2). B. ?Colon, transverse, polyp, biopsy: ? 1. ?? Colonic mucosa with marked cautery effect. ??See comment. Comment: ? Deeper sections of the transverse colon biopsy have been examined. The cautery effect precludes a definitive diagnosis. ??(Dr. Brennan)/[facility] Document reviewed and electronically signed by: Maggie Brennan MD Report ??Date: 07/11/2007 18:09 By the signature above, the attending physician certifies that he/she has personally conducted a gross and/or microscopic examination of the described specimens and rendered or confirmed the above diagnosis. Specimen(s) Received: A. ?Polyps ascending colon x3 (#1) B. ? Transverse colon polyp (#2) Clinical History: ? Asymp screen Gross Description: ? Received in Hollande's fixative labelled Lesli and ascending colon polyps are three pablo-pink soft tissues ranging from 0.2 x 0.2 x 0.2 cm to 0.4 x 0.2 x 0.2 cm. ??The specimen is entirely submitted as (A). Received in Hollande's fixative labelled Lesli and transverse colon polyp is a pablo-pink, 0.3 x 0.3 x 0.2 cm, soft tissue fragment. ??The specimen is entirely submitted as (B). ??(Robe Schuster)/lgk End of Report [facility] 07/07/2007 07/08/2007 8:4 5 EDT Ravi Nicole MD PATHOLOGY ORDERABLES Performing Organization Address City/State/[facility] Co de Phone Number [facility] [address] [place] [address] documented in this encounter Visit Diagnoses Not on filedocumented in this encounter
--- OUTSIDE RECORDS SUMMARY | 2024-05-01 00:58 | XMS_ITS | Encounter Summary ---
Author Organization [facility] Address [address] [place] [address] Care Team Providers Care Slate Mixer Name Role Phone Unavailable Primary Care Provider Unavailabl e Encounter Details Date Type Department Care Team (Late st Contact Info) Description 10/15/[address] [facility] - [place] conversion [address] [place] [address] Acacia Cage FNP [address] [place], [place] [phone] Social History Tobacco Use Types Packs/Day Years Used Date Smoking Tobacco: Never Assessed Sex and Gender Information Value Date Recorded Sex Assigned at Not on file Gender Identity Not on file Sexual Orientation Not on file documented as of this encounter Plan of Treatment Not on file documented as of this encounter Procedures Procedure Name Priority Date/Time Associated Diagnosis Comments CYTOPATHOLOGY Routine 10/15/2005 0:00 EST documented in this encounter Results * CYTOPATHOLOGY (10/15/2005 0:00 EST) Pathology Report: CYTOPATHOLOGY REPORT Reports generated via electronic interface contain original data; however they are lacking the format of the original report. Caution should be taken when reading/interpreti ng unformatted reports. Name: ? RITU BALLESTEROS ? Accession #: ? [id number] : ? 1945 (Age: 59) ??F ?Collect Date: ? 10/15/2005 Location: ? [facility] ? Receive Date: ? 10/18/2005 Provider: ?ACACIA BABINP Copy to: ? Specimen/Source: ?ThinPrep Pap Test, Cervix/Endocervix, processed on [employer] Information ThinPrep Imaging System, with manual evaluation Last Menstrual Period: ? 2004 Other: ? HPVA - HPV testing requested if ASC-US on the current ThinPrep Pap test. ? SPECIMEN ADEQUACY ? Satisfactory for Evaluation - assessment of transformation zone component not applicable ( e.g. atrophy, vaginal sample, hysterectomy) GENERAL CATEGORIZATION ? Negative for Intraepithelial Lesion or Malignancy ? Document reviewed and electronically signed by: ? NAKITA Quezada(ASCP) ? Report Date: ??10/19/2005 11:00 End of Report [facility] 10/15/2005 10/18/2005 Acacia BABINP PATHOLOGY ORDERABLES Performing Organization Address City/State/[facility] Co de Phone Number LOKESH BUNN [address] [place] [address] documented in this encounter Visit Diagnoses Not on filedocumented in this encounter
--- OUTSIDE RECORDS SUMMARY | 2024-05-01 00:58 | XMS_ITS | Encounter Summary ---
Author Organization [facility] Address [address] [place] [address] Care Team Providers Care Spice Fumigator Name Role Phone Unavailable Primary Care Provider Unavailabl e Encounter Details Date Type Department Care Team (Late st Contact Info) Description 01/24/2000 Results Only [facility] [address] [place] [address] Drake Rojas MD [address] [address] [address] Social History Tobacco Use Types [...] Priority Date/Time Associated Diagnosis Comments CYTOPATHOLOGY Routine 01/24/2000 8:47 EDT documented in this encounter Results * CYTOPATHOLOGY (01/24/2000 8:47 EDT) Pathology Report: CYTOPATHOLOGY REPORT Reports generated via electronic interface contain original data; however they are lacking the format of the original report. Caution should be taken when reading/interpreti ng unformatted reports. Name: ? RITU BALLESTEROS ? Accession #: ? [id number] : ? 1945 (Age: 54) ??F ?Collect Date: ? 01/24/2000 Location: ?Receive Date: ? 01/24/2000 Provider: ?DRAKE ROJAS MD Copy to: ?DRAKE ROJAS MD ? Specimen/Source: ?Pap Smear (One Slide) Last Menstrual Period: ? GYNECOLOGIC ??CYTOPATHOLOGY ??REPORT Name: RITU BALLESTEROS ?[facility] : 1945 ?? 54Y F ?Client ID: [id number] SS#: [id number] ? Clinician: DRAKE ROJAS MD ?? Location: [facility] ??Copy to: ?? Specimen: ?Pap Smear (One Slide) ? Source: Cervix/Endocervix ?Collected: 01/22/00 ? Received: 01/24/2000 ?LMP: ?Hormone Therapy: No ? : No ? Radiation Therapy: No ?? Post : No ?Chemotherapy: No ?IUD: No ? Prev Abnormal Pap: No ?? Clinical Hx: Menopausal ?(Blank han indicate information not provided on requisition) SPECIMEN ADEQUACY: ? Satisfactory For Evaluation ?? GENERAL CATEGORIZATION: ? WITHIN NORMAL LIMITS ? Reviewed And Electronically Signed By: ? Rebecca Moore, CT(ASCP) ? Report Date: ?? 01/29/2000 [employer] Archived Tests - Final Diagnosis Text Field: Clinical History : Menopausal ? Document reviewed and electronically signed by: ? Conversion ? Report Date: ??01/29/2000 00:00 End of Report LOKESH BUNN 01/24/2000 8:47 EDT 01/24/2000 8:48 EDT Drake Rojas MD PATHOLOGY ORDERABLES Performing Organization Address City/State/[place] de Phone Number LOKESH BUNN [address] [place] [address] documented in this encounter Visit Diagnoses Not on filedocumented in this encounter
--- NOTE | 2024-05-01 11:10 | DI.RAD_ITS ---
Exam(s) XR FOOT RT COMPLETE EXAM: XR FOOT RT COMPLETE CLINICAL HISTORY: Rt foot pain, M79.671. TECHNIQUE: 2D digital imaging was performed. COMPARISON: No exams were available for comparison FINDINGS: 3 views There is no evidence of fracture or diastasis of the Lisfranc joint. No pes planus. There is moderate-advanced degenerative change in the great toe metatarsophalangeal joint. There is uniform joint space narrowing. Also dorsal-medial osteophyte of the great toe metatarsal head. On t he lateral view there is a 2 x 2 millimeter round osteophytic density just dorsal to the level of the great toe metatarsal neck as seen on the lateral view. No other abnormal soft tissue calcifications . There is mild soft tissue swelling lateral to the head of the 5th metatarsal. No radiopaque forei gn body at this level. The head of the 5th metatarsal and 5th MTP joint as well as the proximal phal anx of the 5th toe are all unremarkable in appearance. There is a tiny inferior calcaneal spur. No calcification in the plantar fascia. 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 DATA REPOSITORY: RADIATION DOSE DELIVERED:
== END 2024-05-01 01:04 ==
LOC: DI 00:44
PROVIDERS: PCP Nurse Practitioner Family; Visit Provider Nurse Practitioner Family
DX: M19.071 Primary osteoarthritis, right ankle and foot (principal)
CPT/HCPCS: 73630

== ENCOUNTER → 2024-07-08 13:41 | Outpatient (BNVA) | payer MEDICARE, SELFPAY | PROVIDERS: PCP Nurse Practitioner Family; Referring Provider Nurse Practitioner Family; Visit Provider Podiatrist | DX: M79.671 Pain in right foot (principal); G57.91 Unspecified mononeuropathy of right lower limb; M20.21 Hallux rigidus, right foot | CPT/HCPCS: 20600; J0702; J1100 ==

== ENCOUNTER 2025-05-04 13:41 | Outpatient (CLI) | payer MEDICARE, SELFPAY ==
--- NOTE | 2025-05-04 | DI.RAD_ITS ---
Exam(s) XR ANKLE LT COMPLETE EXAM: XR ANKLE LT COMPLETE CLINICAL HISTORY: SWELLING, M79.89. TECHNIQUE: 2D digital imaging was performed. COMPARISON: No exams were available for comparison FINDINGS: 3 views There is soft tissue swelling around the ankle but no evidence of acute fracture or widening the ankle mortise. Talar dome unremarkable. There are no degenerative changes evident. No evidence of osseous tarsal coalition. Moderate size inferior calcaneal spur is noted. IMPRESSION: Soft tissue swelling but no acute osseous findings in the ankle. DATA REPOSITORY: RADIATION DOSE DELIVERED:
--- NOTE | 2025-05-04 | DI.RAD_ITS ---
Exam(s) XR FOOT LT COMPLETE EXAM: XR FOOT LT COMPLETE CLINICAL HISTORY: SWELLING LT FOOT, M79.89. TECHNIQUE: 2D digital imaging was performed. COMPARISON: CR XR FOOT RT COMPLETE from 05/01/2024 FINDINGS: 3 views There is no evidence of fracture nor diastasis of the Lisfranc joint. There are mild degenerative changes in the great toe metatarsophalangeal joint. No hallux valgus. There are some degenerative changes evident in the 5th tarsometatarsal joint. There is a moderate size inferior calcaneal spur. No osseous lesions nor erosions evident. IMPRESSION: Degenerative changes noted in the great toe metatarsophalangeal joint and 5th tarsometatarsal joint. No acute osseous findings in the foot. DATA REPOSITORY: RADIATION DOSE DELIVERED:
--- NOTE | 2025-05-04 13:15 | DI.US_ITS ---
Exam(s) US LOWER EXTREMITY VENOUS LT EXAM: US LOWER EXTREMITY VENOUS LT CLINICAL HISTORY: SWELLING LT LOWER LEG, M79.89 TECHNIQUE: Grayscale, color, and doppler imaging of the deep venous system of the left lower extremity was performed. COMPARISON: US US BREAST LT COMPLETE from 07/06/2022 FINDINGS: There is no evidence of intraluminal thrombus and there is normal compression and augmentation demonstrated within the common femoral vein, femoral vein, and popliteal vein. In the ipsilateral calf the interrogated veins also exhibit normal compression/ augmentation properties. Some edema is noted in the nor calf region. The ipsilateral saphenofemoral junction is patent. IMPRESSION: 1. No evidence of DVT in the left lower extremity. Some edema is noted in the lower calf region. DATA REPOSITORY:
== END 2025-05-04 14:01 ==
LOC: DI 13:41
PROVIDERS: PCP Nurse Practitioner Family; Visit Provider Physician Assistant Medical
DX: M79.89 Other specified soft tissue disorders (principal); M19.072 Primary osteoarthritis, left ankle and foot
CPT/HCPCS: 73610; 73630; 93971

== ENCOUNTER 2025-06-29 12:24 | Outpatient (CLI) | payer MEDICARE, SELFPAY ==
[2025-06-29 13:10] LABS: D-Dimer 1009 ng/mlFEU (<500)
== END 2025-06-29 12:25 | disposition home or self-care (01) ==
LOC: LBO 12:25
PROVIDERS: PCP Nurse Practitioner Family; Visit Provider Nurse Practitioner Family
DX: M79.662 Pain in left lower leg (principal)
CPT/HCPCS: 36415; 85379

== ENCOUNTER 2025-06-30 00:12 | Outpatient (CLI) | payer MEDICARE, SELFPAY ==
--- NOTE | 2025-06-30 11:00 | DI.US_ITS ---
Exam(s) US LOWER EXTREMITY VENOUS LT EXAM: US LOWER EXTREMITY VENOUS LT CLINICAL HISTORY: SWELLING LT FOOT, M79.89,OTHER SOFT TISSUE ORDER TECHNIQUE: Left lower extremity venous ultrasound performed using grayscale, color-flow, and spectral Doppler analysis. COMPARISON: US US LOWER EXTREMITY VENOUS LT from 05/04/2025 FINDINGS: The left common femoral, femoral and popliteal veins demonstrate normal compressibility, augmentation, and color Doppler. The posterior tibial veins are patent. The saphenofemoral junction is unremarkable. There is a popliteal cyst. It measures 8.2 x 1.4 x 3.0 cm. There is a 2nd communication more inferiorly which does communicate with the popliteal fluid collection. This may represent a ruptured Telles cyst. The soft tissues are unremarkable. IMPRESSION: 1. No evidence of a left lower extremity DVT. 2. Telles cyst with findings suggestive of a rupture. DATA REPOSITORY:
== END 2025-06-30 00:32 ==
LOC: DI 00:12
PROVIDERS: PCP Nurse Practitioner Family; Visit Provider Nurse Practitioner Family
DX: M79.89 Other specified soft tissue disorders (principal); M71.22 Synovial cyst of popliteal space [Baker], left knee
CPT/HCPCS: 93971

== ENCOUNTER 2025-07-15 10:57 | Outpatient (REF) | payer MEDICARE, SELFPAY ==
[2025-07-15 15:10] LABS: HCT 38.1 % (36.0-46.0); HGB 12.5 g/dL (11.2-15.7); MCH 29.7 pg (27.0-33.0); MCHC 32.8 % (32.0-36.0); MCV 91 fL (80-95); MPV 10.7 fL (8.0-11.0); Platelet Count 351 10^3/uL (130-400); RBC 4.21 10^6/uL (3.93-5.22); RDW 12.9 % (11.7-14.6); RDW-SD 42.3 fL; WBC 8.15 10^3/uL (4.4-10.8)
== END 2025-07-15 10:58 | disposition home or self-care (01) ==
LOC: NCHCN 10:57
PROVIDERS: PCP Nurse Practitioner Family; Visit Provider Nurse Practitioner Family
DX: D64.9 Anemia, unspecified (principal)
CPT/HCPCS: 85027